=== PATIENT | male | born 1985 | race Caucasian/White ===

== ENCOUNTER 2017-10-18 19:21 | Inpatient (IN) | payer OTHER ==
[~2017-10-18] VITALS: Ht 167.6 cm; Wt 69.7 kg
[2017-10-18] MEDS ORDERED: LORazepam 2MG/ML-1ML VIAL ONE ×2 (19:53→23:11)
[2017-10-18 20:44] LABS: Basophils # (auto) 0 uL; Basophils % (auto) 0.3 % (0.0-2.0); Eosinophils # (auto) 0.1 uL; Eosinophils % (auto) 0.7 % (0.0-7.0); Hematocrit 43.1 % (41.0-53.0); Hemoglobin 14.1 g/dL (13.5-17.5); Lymphocytes # (auto) 1.7 uL; Lymphocytes % (auto) 10.8 % (10.0-50.0); Mean Corpuscular Hemoglobin 31.1 pg (28.0-32.0); Mean Corpuscular Hgb Conc. 32.8 g/dL (32.0-36.0); Mean Corpuscular Volume 94.8 fL (80.0-100.0); Monocytes # (auto) 1.4 uL; Monocytes % (auto) 8.7 % (0.0-12.0); Neutrophils # (auto) 12.6 uL; Neutrophils % (auto) 79.5 % (37.0-80.0); Platelet Count (auto) 356 10^3/uL (140-450); Red Blood Cells 4.55 10^6/uL (4.5-5.90); Red Cell Distribution Width 13.1 % (11.8-14.3); White Blood Cell 15.9 10^3/uL (4.4-10.8)
[2017-10-18] MEDS ORDERED: LORazepam 2MG/ML-1ML VIAL IV ONE ×2 (20:45→23:30)
[2017-10-18 20:48] LABS: Potassium 4.3 mmol/L (3.5-5.1)
[2017-10-18 20:52] LABS: BUN/Creatinine Ratio 10.3; Calcium 8.4 mg/dL (8.5-10.1)
[2017-10-18 20:55] LABS: Bilirubin, Total 0.2 mg/dL (0.2-1.0); Total Protein 7.7 g/dL (6.4-8.2)
[2017-10-18] MEDS ORDERED: GABA300C10 PO (21:00)
[2017-10-18] MEDS ORDERED: CALC3OIN2 EX (21:04)
[2017-10-18] MEDS ORDERED: ATEN-60 PO (21:04)
[2017-10-18] MEDS ORDERED: ASPI-231 PO (21:04)
[2017-10-18] MEDS ORDERED: AMLO5TAB2 PO (21:04)
[2017-10-18] MEDS ORDERED: PRAV20TA3 PO (21:04)
[2017-10-18] MEDS ORDERED: TAMS0.4C36 PO (21:04)
[2017-10-18] MEDS ORDERED: CLOP75TA41 PO (21:04)
[2017-10-18] MEDS ORDERED: SODIUM CHLORIDE 0.9% 1,000 ML IV ONE (21:30)
[2017-10-18] MEDS ORDERED: SODIUM CHLORIDE 0.9% 1,000 ML IVB ONE (21:46)
[2017-10-18] MEDS ORDERED: NITROGLYCERIN 0.4 MG SL TAB SL PRN (22:45)
[2017-10-18] MEDS ORDERED: MORPHINE SULF(PF) 0.5MG/ML 10ML VIAL IV PRN (22:45)
[2017-10-18] MEDS ORDERED: LEVETIRACETAM INJ 500 MG in D5W 5% 100 ML IV ONE (22:45)
[2017-10-18] MEDS ORDERED: ACETAMINOPHEN 325 MG TAB PO PRN (22:45)
[2017-10-18] MEDS: SODIUM CHLORIDE 0.9% 1,000 ML IV SCH (22:45)
[2017-10-18] MEDS ORDERED: LORazepam 2MG/ML-1ML VIAL IV PRN (22:45)
[2017-10-18] MEDS ORDERED: ONDANSETRON HCL 4 MG/2 ML VIAL IV PRN (22:45)
[2017-10-18] MEDS ORDERED: LEVETIRACETAM 500 MG/5ML INJ IV ONE (23:16)
[2017-10-19 01:44] LABS: Alcohol, Urine < 3.0 mg/dL (0-5); Amphetamine Screen, Urine NEGATIVE (NEGATIVE); Barbiturate Scree,Urine NEGATIVE (NEGATIVE); Benzodiazephine Screen, Urine NEGATIVE (NEGATIVE); Cannabinoid Screen, Urine NEGATIVE (NEGATIVE); Cocaine Screen, Urine NEGATIVE (NEGATIVE); Opiate Scree,Urine NEGATIVE (NEGATIVE); Phencyclidine Screen, Urine NEGATIVE (NEGATIVE)
[2017-10-19 01:49] LABS: Urine Bacteria NONE SEEN /hpf (None Seen); Urine Blood Negative /uL (Negative); Urine Mucus FEW (None Seen); Urine Specific Gravity 1.013 (1.001-1.035); Urine WBC 1 /hpf (0 - 3)
[2017-10-19 02:26] VITALS: BP 113/62
[2017-10-19] MEDS ORDERED: CARB200T PO (04:31)
[2017-10-19 05:00] VITALS: BP 98/62
[2017-10-19 07:50] LABS: Basophils # (auto) 0 uL; Basophils % (auto) 0.2 % (0.0-2.0); Eosinophils # (auto) 0 uL; Eosinophils % (auto) 0.4 % (0.0-7.0); Hematocrit 38.9 % (41.0-53.0); Hemoglobin 13.1 g/dL (13.5-17.5); Lymphocytes # (auto) 0.8 uL; Lymphocytes % (auto) 8.6 % (10.0-50.0); Mean Corpuscular Hemoglobin 31.2 pg (28.0-32.0); Mean Corpuscular Hgb Conc. 33.7 g/dL (32.0-36.0); Mean Corpuscular Volume 92.5 fL (80.0-100.0); Neutrophils # (auto) 7.9 uL; Neutrophils % (auto) 80.8 % (37.0-80.0); Platelet Count (auto) 284 10^3/uL (140-450); Red Blood Cells 4.21 10^6/uL (4.5-5.90); Red Cell Distribution Width 13.3 % (11.8-14.3); White Blood Cell 9.8 10^3/uL (4.4-10.8)
[2017-10-19 08:03] LABS: Albumin 3.6 g/dL (3.4-5.0); BUN/Creatinine Ratio 11.7; Calcium 7.7 mg/dL (8.5-10.1); Potassium 4.1 mmol/L (3.5-5.1)
[2017-10-19 08:06] LABS: Bilirubin, Total 0.4 mg/dL (0.2-1.0); Total Protein 6.8 g/dL (6.4-8.2)
[2017-10-19 08:15] VITALS: BP 100/55
[2017-10-19] MEDS: ENOXAPARIN SOD 40 MG/0.4 ML SYRINGE SC SCH (10:23)
[2017-10-19] MEDS: FAMOTIDINE 20 MG TAB PO SCH ×2 (10:23→21:16)
[2017-10-19] MEDS: LEVETIRACETAM INJ 500 MG in D5W 5% 100 ML IV SCH ×2 (10:23→21:16)
[2017-10-19] MEDS: SODIUM CHLORIDE 0.9% 1,000 ML IV SCH ×2 (10:24→18:44)
[2017-10-19 11:53] VITALS: BP 108/65
[2017-10-19] MEDS ORDERED: LORazepam 2MG/ML-1ML VIAL IV PRN (15:45)
[2017-10-19 16:43] VITALS: BP 107/43
[2017-10-19 22:00] VITALS: BP 103/69
[2017-10-20 05:00] VITALS: BP 103/52
[2017-10-20] MEDS: SODIUM CHLORIDE 0.9% 1,000 ML IV SCH ×2 (05:51→15:20)
[2017-10-20 08:00] VITALS: BP 111/69
[2017-10-20] MEDS: FAMOTIDINE 20 MG TAB PO SCH ×2 (09:39→21:40)
[2017-10-20] MEDS: ENOXAPARIN SOD 40 MG/0.4 ML SYRINGE SC SCH (09:39)
[2017-10-20] MEDS: LEVETIRACETAM INJ 500 MG in D5W 5% 100 ML IV SCH (09:39)
[2017-10-20] MEDS ORDERED: LORazepam 2MG/ML-1ML VIAL IV ONE (10:00)
[2017-10-20] MEDS: carBAMazepine 200 MG TAB PO SCH ×2 (10:56→21:41)
[2017-10-20 12:00] VITALS: BP 109/73
[2017-10-20 15:00] VITALS: BP 112/71
[2017-10-20 21:25] VITALS: BP 110/68
[2017-10-20 22:05] VITALS: BP 110/68
[2017-10-21] MEDS: SODIUM CHLORIDE 0.9% 1,000 ML IV SCH ×3 (01:03→21:28)
[2017-10-21 05:00] VITALS: BP 139/81
[2017-10-21 08:00] VITALS: BP 120/76
[2017-10-21] MEDS: FAMOTIDINE 20 MG TAB PO SCH ×2 (09:44→21:28)
[2017-10-21] MEDS: carBAMazepine 200 MG TAB PO SCH ×2 (09:44→21:28)
[2017-10-21] MEDS: ENOXAPARIN SOD 40 MG/0.4 ML SYRINGE SC SCH (09:44)
[2017-10-21 12:00] VITALS: BP 115/75
[2017-10-21 15:00] VITALS: BP 125/78
[2017-10-21 22:00] VITALS: BP 127/83
[2017-10-22 05:30] VITALS: BP 125/84
[2017-10-22] MEDS: SODIUM CHLORIDE 0.9% 1,000 ML IV SCH ×2 (05:49→17:44)
[2017-10-22 08:16] VITALS: BP 123/74
[2017-10-22] MEDS: carBAMazepine 200 MG TAB PO SCH ×2 (09:55→21:44)
[2017-10-22] MEDS: FAMOTIDINE 20 MG TAB PO SCH ×2 (09:55→21:44)
[2017-10-22] MEDS: ENOXAPARIN SOD 40 MG/0.4 ML SYRINGE SC SCH (09:56)
[2017-10-22 13:00] VITALS: BP 122/73
[2017-10-22 16:23] VITALS: BP 113/73
[2017-10-22 22:00] VITALS: BP_SYST 106; BP_SYST 146; BP_DIAS 70; BP_DIAS 72
[2017-10-23] MEDS: SODIUM CHLORIDE 0.9% 1,000 ML IV SCH ×3 (02:45→21:38)
[2017-10-23 06:06] VITALS: BP 111/74
[2017-10-23 09:00] VITALS: BP 117/78
[2017-10-23] MEDS: carBAMazepine 200 MG TAB PO SCH ×2 (10:08→21:38)
[2017-10-23] MEDS: ENOXAPARIN SOD 40 MG/0.4 ML SYRINGE SC SCH (10:08)
[2017-10-23] MEDS: FAMOTIDINE 20 MG TAB PO SCH ×2 (10:08→21:38)
[2017-10-23 12:55] VITALS: BP 117/76
[2017-10-23 17:08] VITALS: BP 118/72
[2017-10-23 22:00] VITALS: BP 104/61
[2017-10-24 05:00] VITALS: BP 111/69
[2017-10-24 08:00] VITALS: BP 106/64
[2017-10-24 08:27] VITALS: BP 106/64
[2017-10-24] MEDS: ENOXAPARIN SOD 40 MG/0.4 ML SYRINGE SC SCH (10:50)
[2017-10-24] MEDS: carBAMazepine 200 MG TAB PO SCH ×2 (10:51→22:17)
[2017-10-24] MEDS: FAMOTIDINE 20 MG TAB PO SCH ×2 (10:51→22:18)
[2017-10-24] MEDS: SODIUM CHLORIDE 0.9% 1,000 ML IV SCH ×2 (10:51→18:50)
[2017-10-24 12:54] VITALS: BP 91/55
[2017-10-24 17:00] VITALS: BP 115/73
[2017-10-24] MEDS ORDERED: LORazepam 2MG/ML-1ML VIAL IV PRN (18:00)
[2017-10-24 22:00] VITALS: BP 107/66
[2017-10-25] MEDS: SODIUM CHLORIDE 0.9% 1,000 ML IV SCH ×2 (04:00→15:17)
[2017-10-25 05:00] VITALS: BP 129/69
[2017-10-25 07:19] LABS: Basophils # (auto) 0 uL; Basophils % (auto) 0.5 % (0.0-2.0); Eosinophils # (auto) 0.2 uL; Eosinophils % (auto) 3.1 % (0.0-7.0); Hematocrit 44.1 % (41.0-53.0); Hemoglobin 15.5 g/dL (13.5-17.5); Lymphocytes # (auto) 2.2 uL; Lymphocytes % (auto) 31.8 % (10.0-50.0); Mean Corpuscular Hemoglobin 32.2 pg (28.0-32.0); Mean Corpuscular Hgb Conc. 35.1 g/dL (32.0-36.0); Mean Corpuscular Volume 91.7 fL (80.0-100.0); Monocytes # (auto) 0.7 uL; Monocytes % (auto) 10.4 % (0.0-12.0); Neutrophils # (auto) 3.8 uL; Neutrophils % (auto) 54.2 % (37.0-80.0); Nucleated Red Blood Cells % 0.1 %; Platelet Count (auto) 322 10^3/uL (140-450); Red Blood Cells 4.81 10^6/uL (4.5-5.90); Red Cell Distribution Width 13.1 % (11.8-14.3)
[2017-10-25 08:00] VITALS: BP 117/71
[2017-10-25 08:38] LABS: BUN/Creatinine Ratio 16.4; Calcium 8.5 mg/dL (8.5-10.1); Potassium 4.3 mmol/L (3.5-5.1)
[2017-10-25 09:00] VITALS: BP 116/71
[2017-10-25] MEDS: carBAMazepine 200 MG TAB PO SCH (10:23)
[2017-10-25] MEDS: ENOXAPARIN SOD 40 MG/0.4 ML SYRINGE SC SCH (10:23)
[2017-10-25] MEDS: FAMOTIDINE 20 MG TAB PO SCH (10:23)
[2017-10-25] MEDS ORDERED: GADOPENTETATE DIMEGLUMINE (10MMOL/20 ML) VIAL IV ONE (10:45)
[2017-10-25 11:29] VITALS: BP 116/71
[2017-10-25 13:00] VITALS: BP 103/65
== END 2017-10-25 16:00 | disposition home or self-care (01) | DRG 100 ==
LOC: EDBD 19:21 → ER 19:21 → TELE 19:22 → EEVIPCON 19:22 → TELE-WESTW 10-19 01:44
PROVIDERS: ADMIT Nurse Practitioner; ATTEND Internal Medicine
DX: G40.201 Localization-related (focal) (partial) symptomatic epilepsy and epileptic syndromes with complex partial seizures, not intractable, with status epilepticus (principal); N17.0 Acute kidney failure with tubular necrosis; G93.1 Anoxic brain damage, not elsewhere classified; E86.0 Dehydration; D72.829 Elevated white blood cell count, unspecified; G93.89 Other specified disorders of brain; F29 Unspecified psychosis not due to a substance or known physiological condition
CPT/HCPCS: 36415; 51702; 70450; 70551; 70553; 71045; 80048; 80053; 80156; 80307; 81001; 85025; 94761; 95819; 96361; 96365; 96375; J7060